=== PATIENT | female | born 1970 | race Caucasian/White ===

== ENCOUNTER 2016-08-20 02:45 | Emergency (ER) | payer BC ==
[~2016-08-20] VITALS: Ht 157.5 cm; Wt 85.0 kg
[~2016-08-20 02:45] MED LIST: CYCL-319 PO; HYDR-906 PO; NAPR-260 PO
[2016-08-20 02:51] VITALS: Ht 157.5 cm; Wt 85.0 kg
--- NOTE | 2016-08-20 05:04 | RADRPT ---
PROCEDURE: CT Brain without contrast. CLINICAL INDICATION: Trauma TECHNIQUE: Axial images from the skull base through the vertex without IV contrast. Multiplanar r eformatted images were made. Images were reviewed on a PACS workstation. The CTDIvol is 44.81 mGy and the DLP is 720.23 mGycm. One or more of the following dose reduction techniques were used: auto mated exposure control, adjustment of the mA and/or kV according to patient size, or use of iterativ e reconstruction technique. COMPARISON: None. FINDINGS: The ventricles and cisterns are normal for age. There is no evidence for territorial infarction or intracranial hemorrhage. No mass or midline shift is seen. No extra-axial fluid collection is seen . The visualized paranasal sinuses and mastoids are clear. IMPRESSION: No definite acute intracranial abnormality. RPTAT: [facility] Physician Kavon Date Time Electronically viewed and signed by Physician Kavon on 08/20/2016 05:04 ALICJA/
--- NOTE | 2016-08-20 05:06 | RADRPT ---
PROCEDURE: CT Cervical Spine. CLINICAL INDICATION: Trauma. Neck pain. TECHNIQUE: Helical CT scanning which forms the basis for coronal and sagittal reformatted images. All CT scans at this facility use dose modulation, iterative reconstruction, and/or weight-based do sing when appropriate to reduce radiation dose to as low as reasonably achievable. The CTDIvol is 2 2.27 mGy and the DLP is 525.91 mGycm. One or more of the following dose reduction techniques were us ed: automated exposure control, adjustment of the mA and/or kV according to patient size, or use of iterative reconstruction technique. COMPARISON: None. FINDINGS: There is slight reversal of cervical lordosis which may be secondary to spasm or positioning. No pr evertebral soft tissue swelling is seen. No fracture or significant listhesis is seen. IMPRESSION: No definite fracture or significant listhesis. Clinical clearance of the cervical spine is still ad vised. RPTAT: [facility] Physician Kavon Date Time Electronically viewed and signed by Physician Kavon on 08/20/2016 05:06 ALICJA/
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
--- NOTE | 2016-08-20 05:24 | RADRPT ---
PROCEDURE: RIGHT ANKLE - 3 VIEWS CLINICAL INDICATION: 46-year-old female with trauma. TECHNIQUE: AP, oblique and lateral views of the right ankle were performed. The images reviewed on a PACS workstation. COMPARISON: Right ankle July 20, 2012. FINDINGS: The bones of the ankle appear intact, with no evidence of fracture, dislocation, or subluxation. The joint spaces are preserved. The mortise appears intact. Bone mineralization is within normal limits . IMPRESSION: Unremarkable right ankle radiographs. .Fred Banks MD, MD Date Time Electronically viewed and signed by .Fred Banks MD, MD on 08/20/2016 05:23 .M/
[2016-08-20] MEDS ORDERED: IBUP-1542 PO (05:45)
[2016-08-20] MEDS ORDERED: IBUPROFEN 200 MG TAB PO ONE (06:00)
[2016-08-20 06:18] VITALS: BP 124/77; PULSE 79; RESP 18; TEMP 98.6
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
== END 2016-08-20 06:18 | disposition home or self-care (01) ==
LOC: E/R 02:45
DX: S83.91XA Sprain of unspecified site of right knee, initial encounter (principal); R40.2252 Coma scale, best verbal response, oriented, at arrival to emergency department; S93.401A Sprain of unspecified ligament of right ankle, initial encounter; S09.8XXA Other specified injuries of head, initial encounter; R40.2142 Coma scale, eyes open, spontaneous, at arrival to emergency department; R40.2362 Coma scale, best motor response, obeys commands, at arrival to emergency department; W18.09XA Striking against other object with subsequent fall, initial encounter; Y92.9 Unspecified place or not applicable
CPT/HCPCS: 36415; 70450; 72125; 72170; 73562; 73610; 84703; 99285; Z7610

== ENCOUNTER 2017-03-24 21:51 | Emergency (ER) | payer BC ==
[~2017-03-24] VITALS: Ht 167.6 cm; Wt 103.0 kg
[~2017-03-24 21:51] MED LIST changes: +IBUP-1542 PO
[2017-03-24 21:54] VITALS: Ht 167.6 cm; Wt 103.0 kg
[2017-03-24] MEDS ORDERED: ONDANSETRON 4 MG INJ IV STA (23:34)
[2017-03-24] MEDS ORDERED: morphine 4 MG/ML VIAL IV STA (23:34)
[2017-03-24] MEDS ORDERED: SOD CHLORIDE 0.9% 1,000 ML IV STA (23:34)
--- NOTE | 2017-03-24 23:44 | ERD ---
ER Documentation Chief Complaint Date/Time DATE: 03/24/17 TIME: 23:40 Chief Complaint c/o abd pain since a.m. after eating breakfast. (+) nausea and diarrhea. HPI 46-year-old female presents to emergency department for complaints of mid abdominal pain that started this morning after eating breakfast. Patient describes the pain as sharp pain, 10/10 scale, not better or worse with anything. Patient did not take any medications to help with symptoms. Patient denies any vomiting but is complaining of nausea. Patient had episodes of diarrhea. Patient is not on any blood in stool or black stool. ROS All systems reviewed and are negative except as per history of present illness. Medications Home Meds Active Scripts Ibuprofen* (Motrin*) 600 Mg Tab, 600 MG PO Q6H Y for PAIN AND OR ELEVATED TEMP, #30 TAB Prov:RAMÍREZ CLAYTON MD 08/20/16 Naproxen* (Naprosyn*) 500 Mg Tablet, 500 MG PO BID Y for PAIN AND/OR INFLAMMATION, #30 TAB Prov:NAKITA MOLINA PA-C 04/20/16 Hydrocodone/Acetaminophen ([place] 5-325 Tablet) 1 Each Tablet, 1 TAB PO Q6H Y for PAIN, #7 TAB Prov:NAKITA MOLINA PA-C 04/20/16 Cyclobenzaprine Hcl* (Cyclobenzaprine Hcl*) 10 Mg Tablet, 10 MG PO TID, #15 TAB Prov:NAKITA MOLINA PA-C 04/20/16 Allergies Allergies: Coded Allergies: No Known Allergy (Unverified , 08/20/16) PMhx/Soc History of Surgery: Yes (cholecystectomy,umbilical hernia repair,tonsillectomy) Anesthesia Reaction: No Hx Neurological Disorder: No Hx Respiratory Disorders: No Hx Cardiac Disorders: No Hx Psychiatric Problems: No Hx Miscellaneous Medical Probl: No Hx Alcohol Use: Yes (occasionally,last used 08/19/16-vodka,beer,wine,Tequila) Hx Substance Use: No Hx Tobacco Use: No FmHx Family History: No coronary disease, No diabetes, No other Physical Exam Vitals Vital Signs Date Time Temp Pulse Resp B/P Pulse Ox O2 Delivery O2 Flow Rate FiO2 03/24/17 21:54 99.0 79 18 187/92 99 Physical Exam GENERAL: The patient is well developed and appropriate for usual state of health, in no apparent distress. CHEST: Clear to auscultation bilaterally. There are no rales, wheezes or rhonchi. HEART: Regular rate and rhythm. No murmurs, clicks, rubs or gallops. No S3 or S4. ABDOMEN: Soft, mid abdominal tenderness noted and nondistended. Good bowel sounds. No rebound or guarding. No gross peritonitis. No gross organomegaly or masses. No Gonzalez sign or McBurney point tenderness. BACK: No midline or flank tenderness. EXTREMITIES: Equal pulses bilaterally. There is no peripheral clubbing, cyanosis or edema. No focal swelling or erythema. Full range of motion. Grossly neurovascularly intact. NEURO: Alert and oriented. Cranial nerves 2-12 intact. Motor strength in all 4 extremities with 5/5 strength. Sensation grossly intact. Normal speech and gait. SKIN: There is no apparent rash or petechia. The skin is warm and dry. HEMATOLOGIC AND LYMPHATIC: There is no evidence of excessive bruising or lymphedema. No gross cervical, axillary, or inguinal lymphadenopathy. Result Diagram: 03/25/17 0020 03/25/17 0020 Results 24 hrs Laboratory Tests Test 03/25/17 00:20 White Blood Count 9.110^3/ul Red Blood Count 4.9410^6/ul Hemoglobin 11.5g/dl Hematocrit 38.2% Mean Corpuscular Volume 77.3fl Mean Corpuscular Hemoglobin 23.3pg Mean Corpuscular Hemoglobin Concent 30.1g/dl Red Cell Distribution Width 17.2% Platelet Count 18084^3/UL Mean Platelet Volume 9.8fl Neutrophils % 77.6% Lymphocytes % 13.9% Monocytes % 6.9% Eosinophils % 0.9% Basophils % 0.4% Nucleated Red Blood Cells % 0.0/100WBC Neutrophils # 7.110^3/ul Lymphocytes # 1.310^3/ul Monocytes # 0.610^3/ul Eosinophils # 0.110^3/ul Basophils # 0.010^3/ul Nucleated Red Blood Cells # 0.010^3/ul Urine Color YELLOW Urine Clarity SLIGHTLY CLOUDY Urine pH 8.0 Urine Specific [place] 1.017 Urine Ketones NEGATIVEmg/dL Urine Nitrite NEGATIVEmg/dL Urine Bilirubin NEGATIVEmg/dL Urine Urobilinogen NEGATIVEmg/dL Urine Leukocyte Esterase NEGATIVELeu/ul Urine Microscopic RBC 1/HPF Urine Microscopic WBC 1/HPF Urine Squamous Epithelial Cells FEW/HPF Urine Bacteria FEW/HPF Urine Hemoglobin NEGATIVEmg/dL Urine Glucose NEGATIVEmg/dL Urine Total Protein 1+mg/dl Sodium Level 139mmol/L Potassium Level 3.7mmol/L Chloride Level 100mmol/L Carbon Dioxide Level 31mmol/L Anion Gap 12 Blood Urea Nitrogen 13mg/dl Creatinine 0.85mg/dl Glucose Level 116mg/dl Calcium Level 10.5mg/dl Total Bilirubin 0.3mg/dl Direct Bilirubin 0.00mg/dl Indirect Bilirubin 0.3mg/dl Aspartate Amino Transf (AST/SGOT) 21IU/L Alanine Aminotransferase (ALT/SGPT) 33IU/L Alkaline Phosphatase 113IU/L Total Protein 8.2g/dl Albumin 4.3g/dl Globulin 3.90g/dl Albumin/Globulin Ratio 1.10 Lipase 58U/L Current Medications Medications (Trade) Dose Ordered Sig/Nini Route PRN Reason Start Time Stop Time Status Last Admin Dose Admin Sodium Chloride (NS) 1,000 ml @ 1,000 mls/hr Q1H STAT IV 03/24/17 23:34 03/25/17 00:33 DC 03/25/17 00:11 Morphine Sulfate (morphine) 4 mg ONCE STAT IV 03/24/17 23:34 03/24/17 23:37 DC 03/25/17 00:10 Ondansetron HCl 4 mg 4 mg ONCE STAT IV 03/24/17 23:34 03/24/17 23:37 DC 03/25/17 00:10 Sodium Chloride (NS) 100 ml @ ud STK-MED ONCE .ROUTE 03/25/17 01:34 03/25/17 01:35 DC 03/25/17 01:49 Iohexol (Omnipaque 300mg/ ml) 150 ml STK-MED ONCE .ROUTE 03/25/17 01:34 03/25/17 01:35 DC 03/25/17 01:48 Patient was given medication for pain here in emergency department, after treatment, patient verbalized feeling much better. Patient's pain is improved. Patient was given Zofran here in the emergency department. After treatment, patient was able to tolerate po fluids here in the emergency department without any vomiting. There is no signs and symptoms of dehydration. Normal saline IV bolus was given here in emergency department for rehydration, patient tolerated IV fluids. PROCEDURE: CT ABDOMEN/PELVIS WITH CONTRAST CLINICAL INDICATION: 46-year-old female with abdominal pain. TECHNIQUE: The study was performed utilizing a GE MicroEdgepeed VCT 64-slice CT scanner. Direct axial sections were obtained through the abdomen and pelvis with the use of 100 cc of Omnipaque-300 nonionic intravenous contrast material. Sagittal and coronal reformations were obtained. One or more of the following dose reduction techniques were utilized: automated exposure control, adjustment of the mA and/or kV according to patient's size or use of iterative reconstruction technique. The images were reviewed on a PACS workstation. CTD/ vol = 23.4 mGy; Total Exam DLP = 1450.9 mGy-cm. COMPARISON: None. FINDINGS: There is trace right basilar subsegmental atelectasis. There is no evidence for significant pleural effusion. The liver has a normal size and contour without focal areas of abnormal density or contrast enhancement. There is mild intrahepatic biliary ductal dilatation. Surgical clips are present within the gallbladder fossa from prior cholecystectomy. The distal common bile duct measures approximately 6.7 mm. The pancreas is without areas of abnormal attenuation or contrast enhancement. This spleen is identified and has a normal size without abnormal density or contrast enhancement. The adrenal glands are unremarkable. The kidneys are functional bilaterally without abnormal density. No hydroureteronephrosis nor nephroureterolithiasis is evident. The urinary bladder contains urine. There is mild fluid identified within the small bowel and colon without obstruction. This may represent an enteritis. There are a few small diverticula within the sigmoid colon without surrounding inflammatory changes. The appendix is diminutive and is without edema or surrounding inflammatory reaction. The uterus is anteflexed. There is a partially collapsed right ovarian cyst measuring approximately 13 x 14 x 14 mm. There is trace right adnexal free fluid. There is a ovoid left ovarian cyst measuring approximately 2.5 x 3.3 x 1.9 cm. The aortoiliac vessels are without aneurysmal dilatation. Mild degenerative changes are visualized and L5-S1 with a vacuum disc present. IMPRESSION: 1. Status post cholecystectomy with mild intrahepatic and common bile ductal dilatation. 2. Mild fluid identified within the small bowel and colon without obstruction. This may representing enteritis. Clinical correlation is necessary. 3. Minimal sigmoid diverticulosis. 4. No CT evidence for appendicitis. 5. Partially collapsed right ovarian cyst with trace right adnexal free fluid. 6. Left ovarian cyst. 7. Mild degenerative changes L5-S1. .Fred Banks MD, Date Time Electronically viewed and signed by .Fred Banks MD, MD on 03/25/2017 02:15 .M/ CC: MARY ANNE BENAVIDEZ [employer] ATTORNEY Procedures/MDM Medical Decision Making: Patient symptoms consistent with viral gastroenteritis. No symptoms of dehydration. No active vomiting at this time. There is low suspicion for abdominal emergencies at this time. Patients abdominal exam is normal at this time. Patients radiology exam does not show any abdominal emergencies at this time. There is low suspicion for appendicitis , cholecystitis, abdominal aortic aneurysms or peritonitis at this time. There is low suspicion for sepsis. Patient appears well and is hemodynamically stable. Disposition: Home. Condition: Stable Prescription Bentyl Zofran, ibuprofen, [place] Instructions: Patient is advised to take medications as prescribed. Patient is advised to rest, increase fluid intake and do brat diet for next 1-2 days and progress as tolerated. Patient is advised that if symptoms are worse, severe abdominal pain, uncontrolled vomiting, high fever, severe flank pain, worst signs and symptoms, to return to the emergency department immediately. Otherwise, patient can follow up with primary care doctor in 5-7 days. Disclaimer: Inadvertent spelling and grammatical errors are likely due to EHR/ dictation software use and do not reflect on the overall quality of patient care. Also, please note that the electronic time recorded on this note does not necessarily reflect the actual time of the patient encounter. Departure Diagnosis: Primary Impression: Viral gastroenteritis Condition: Stable Patient Instructions: Gastroenteritis, Viral (6Y-Adult) Additional Instructions: Patient is advised to take medications as prescribed. Patient is advised to rest , increase fluid intake and do brat diet for next 1-2 days and progress as tolerated. Patient is advised that if symptoms are worse, severe abdominal pain , uncontrolled vomiting, high fever, severe flank pain, worst signs and symptoms , to return to the emergency department immediately. Otherwise, patient can follow up with primary care doctor in 5-7 days. MARY ANNE BENAVIDEZ. LA NENA Mar 24, 2017 23:44
[2017-03-25 00:34] LABS: BASOPHILS % 0.4 % (0.0-2.0); EOSINOPHILS # 0.1 10^3/ul (0.0-0.5); EOSINOPHILS % 0.9 % (0.0-7.0); HEMATOCRIT 38.2 % (37.0-47.0); HEMOGLOBIN 11.5 g/dl (12.0-16.0); LYMPHOCYTES # 1.3 10^3/ul (0.8-2.9); LYMPHOCYTES % 13.9 % (15.0-51.0); MEAN CORPUSCULAR HEMOGLOBIN 23.3 pg (29.0-33.0); MEAN CORPUSCULAR HGB CONC 30.1 g/dl (32.0-37.0); MEAN CORPUSCULAR VOLUME 77.3 fl (82.0-101.0); MEAN PLATELET VOLUME 9.8 fl (7.4-10.4); MONOCYTE # 0.6 10^3/ul (0.3-0.9); MONOCYTES % 6.9 % (0.0-11.0); NEUTROPHIL # 7.1 10^3/ul (1.6-7.5); NEUTROPHILS % 77.6 % (39.0-77.0); PLATELET COUNT 398 10^3/UL (140-415); RED BLOOD COUNT 4.94 10^6/ul (4.20-5.40); RED CELL DISTRIBUTION WIDTH 17.2 % (11.5-14.5); WHITE BLOOD COUNT 9.1 10^3/ul (4.8-10.8)
[2017-03-25 00:37] LABS: ADD UMIC YES; UR ASCORBIC ACID NEGATIVE (NEGATIVE); UR BACTERIA FEW /HPF (NONE SEEN); UR BILIRUBIN (Dip) NEGATIVE (NEGATIVE); UR BLOOD (Dip) NEGATIVE (NEGATIVE); UR CLARITY SLIGHTLY CLOUDY (CLEAR); UR COLOR YELLOW (YELLOW); UR GLUCOSE (Dip) NEGATIVE (NEGATIVE); UR KETONES (Dip) NEGATIVE (NEGATIVE); UR LEUKOCYTE ESTERASE (Dip) NEGATIVE Leu/ul (NEGATIVE); UR NITRITE (Dip) NEGATIVE (NEGATIVE); UR RBC 1 /HPF (0-5); UR SPECIFIC GRAVITY (Dip) 1.017 (1.003-1.030); UR SQUAMOUS EPITHELIAL CELL FEW /HPF (FEW); UR TOTAL PROTEIN (Dip) 1+ mg/dl (NEGATIVE); UR UROBILINOGEN (Dip) NEGATIVE (NEGATIVE)
[2017-03-25 01:14] LABS: ALBUMIN 4.3 g/dl (3.3-4.9); ALBUMIN/GLOBULIN RATIO 1.1; BILIRUBIN,INDIRECT 0.3 mg/dl (0-1.1); BILIRUBIN,TOTAL 0.3 mg/dl (0.2-1.3); CALCIUM 10.5 mg/dl (8.4-10.2); CREATININE 0.85 mg/dl (0.44-1.00); POTASSIUM 3.7 mmol/L (3.5-5.1); TOTAL PROTEIN 8.2 g/dl (6.1-8.1)
[2017-03-25] MEDS ORDERED: IOHEXOL 300MG/ML 150 ML BTL ONE (01:34)
[2017-03-25] MEDS ORDERED: SOD CHLORIDE 0.9% 100 ML ONE (01:34)
--- NOTE | 2017-03-25 02:15 | RADRPT ---
PROCEDURE: CT ABDOMEN/PELVIS WITH CONTRAST CLINICAL INDICATION: 46-year-old female with abdominal pain. TECHNIQUE: The study was performed utilizing a GE [employer] VCT 64-slice CT scanner. Direct axia l sections were obtained through the abdomen and pelvis with the use of 100 cc of Omnipaque-300 juma onic intravenous contrast material. Sagittal and coronal reformations were obtained. One or more of the following dose reduction techniques were utilized: automated exposure control, adjustment of the mA and/or kV according to patient's size or use of iterative reconstruction technique. The images were reviewed on a PACS workstation. CTD/vol = 23.4 mGy; Total Exam DLP = 1450.9 mGy-cm. COMPARISON: None. FINDINGS: There is trace right basilar subsegmental atelectasis. There is no evidence for significant pleural effusion. The liver has a normal size and contour without focal areas of abnormal density or contra st enhancement. There is mild intrahepatic biliary ductal dilatation. Surgical clips are present wit hin the gallbladder fossa from prior cholecystectomy. The distal common bile duct measures approxima tely 6.7 mm. The pancreas is without areas of abnormal attenuation or contrast enhancement. This sp allison is identified and has a normal size without abnormal density or contrast enhancement. The adren al glands are unremarkable. The kidneys are functional bilaterally without abnormal density. No hydr oureteronephrosis nor nephroureterolithiasis is evident. The urinary bladder contains urine. There i s mild fluid identified within the small bowel and colon without obstruction. This may represent an enteritis. There are a few small diverticula within the sigmoid colon without surrounding inflammatory changes. The appendix is diminutive and is without edema or surrounding inflammatory re action. The uterus is anteflexed. There is a partially collapsed right ovarian cyst measuring approx imately 13 x 14 x 14 mm. There is trace right adnexal free fluid. There is a ovoid left ovarian cys t measuring approximately 2.5 x 3.3 x 1.9 cm. The aortoiliac vessels are without aneurysmal dilatati on. Mild degenerative changes are visualized and L5-S1 with a vacuum disc present. IMPRESSION: 1. Status post cholecystectomy with mild intrahepatic and common bile ductal dilatation. 2. Mild fluid identified within the small bowel and colon without obstruction. This may representin g enteritis. Clinical correlation is necessary. 3. Minimal sigmoid diverticulosis. 4. No CT evidence for appendicitis. 5. Partially collapsed right ovarian cyst with trace right adnexal free fluid. 6. Left ovarian cyst. 7. Mild degenerative changes L5-S1. .Fred Banks MD, Date Time Electronically viewed and signed by .Fred Banks MD, on 03/25/2017 02:15 .M/
[2017-03-25] MEDS ORDERED: HYDR-906 PO (02:35)
[2017-03-25] MEDS ORDERED: DICY10CA60 PO (02:35)
[2017-03-25] MEDS ORDERED: IBUP-1542 PO (02:35)
[2017-03-25] MEDS ORDERED: ONDA4TAB14 PO (02:35)
[2017-03-25 03:00] VITALS: BP 136/75; PULSE 70; RESP 18; TEMP 97.7
[2017-03-25] MEDS ORDERED: DICYCLOMINE 10 MG CAP PO ONE (03:00)
== END 2017-03-25 03:01 | disposition home or self-care (01) ==
LOC: FTE 21:51
DX: A08.4 Viral intestinal infection, unspecified (principal)
CPT/HCPCS: 36415; 74177; 80053; 81001; 83690; 85025; 96374; 96375; 99285; J2270; J2405; J7030; Q9967; Z7610

== ENCOUNTER 2018-01-31 21:55 | Emergency (ER) | END 2018-02-01 02:20 | disposition home or self-care (01) ==

== ENCOUNTER 2018-11-20 06:28 | Inpatient (IN) | payer BC ==
--- NOTE | 2018-11-19 16:23 | PREOPHP ---
DATE OF ADMISSION: 11/20/2018 The patient is coming on 11/20/2018 for surgery. HISTORY OF PRESENT ILLNESS: This is a 48-year-old female 6, para 5 patient with a history of abnormal Pap smears, menopausal syndrome, body aches, depression, perspiration, hot flashes, history of fibroids and anemia and bleeding. This patient also has been losing urine with Valsalva maneuver s and she wears a pad on a daily basis due to urinary accidents that happens when she lifts and cough and laugh and also urgency and urination sometimes during sex. The patient also complains of pelvic pressure, pelvic pain all day long, dyspareunia, dysmenorrhea, constipation. The patient had a lapa roscopic cholecystectomy in the past and an umbilical hernia. She was diagnosed with a pelvic prolap se, complete uterus vaginal prolapse with large cystourethrocele and rectocele for which she is under going vaginal total hysterectomy and repair. The patient had been advised for a sling procedure and a graft and she has been given all the information about using a graft and sling versus not using it and the alternatives and options, benefits, possible risks and complications. She had been given [facility] information and all her questions were answered. The patient decided to go ahead with this proc edure. PAST MEDICAL HISTORY: As I said is a hernia and laparoscopic cholecystectomy. ALLERGIES: SHE HAS NO ALLERGIES. MEDICATIONS: She has been on lorazepam 1 mg. FAMILY HISTORY: Unremarkable/noncontributory. SOCIAL HISTORY: She does not drink or smoke. REVIEW OF SYSTEMS: She has no history of endocrine disease, cardiovascular, lung disease, orthopedic , neurological. PHYSICAL EXAMINATION: VITAL SIGNS: Stable. Her blood pressure is 120/76, pulse is 80, respirations 16. She weighs 228 po unds. She is 5 feet and 5 inches. HEAD AND NECK: Normal. BREASTS: Soft, nontender. No masses. CHEST: Clear. HEART: Normal sinus rhythm. LUNGS: Clear. BACK: Normal. ABDOMEN: Soft, nontender, no masses. GENITALIA: With large cystourethrocele grade III and rectocele grade II to III. Cervix: Large uter us with fibroid consistency, mobile and painful and adnexa are negative. DIAGNOSES: 1. Uterovaginal prolapse complete. 2. Cystourethrocele grade III. 3. Mixed urinary stress incontinence. 4. Fibroid uterus. 5. Intractable pelvic pain. 6. Menometrorrhagia. 7. Rectocele. 8. Constipation. 9. Anemia. She is undergoing a vaginal total hysterectomy, anterior and posterior colporrhaphy, suburethral slin g and ACell graft. Again, she has been advised of the possible risks and possible complications of t he procedure with her alternatives and options and benefits, possible complications of the sling and no sling and the rest of the operation. She has been on advised that she could use local pessary for which it could be the alternative of the surgery and she would like to have the surgery proceeded an d go ahead. Dictated By: SHARRON SHEPHERD/JERRI Conf#: [id number] DID#: [id number]
[~2018-11-20] VITALS: Ht 162.6 cm; Wt 108.1 kg
[2018-11-20] VITALS (23 sets, daily range): BP systolic 98–126; BP diastolic 56–79; PULSE 18–94; RESP 14–31; Ht 162.6 cm; Wt 108.1 kg
[~2018-11-20 06:28] MED LIST changes: +BISM-34 PO; +CEFAZOLIN 2 GM/50 ML (PMX) 50 ML IVPB ONE; -CYCL-319 PO; +CYCL10TA7 PO; +DICY10CA40 PO; +HYDR-4011 PO; -HYDR-906 PO; -NAPR-260 PO; +NAPR-985 PO; +ONDA4TAB14 PO; +RANI150T35 PO
[2018-11-20] MEDS ORDERED: BUPIVACAINE 0.25%/EPI (SDV) 30 ML INJ INJ ONE (07:00)
[2018-11-20] MEDS ORDERED: BUPIVACAINE 0.25%/EPI (SDV) 30 ML INJ ONE ×3 (07:22→09:59)
[2018-11-20] MEDS ORDERED: NEOSTIGMINE 3 MG/3 ML SYRINGE ONE (07:38)
[2018-11-20] MEDS ORDERED: FENTAnyl 50 MCG/ML VIAL ONE (07:38)
[2018-11-20] MEDS ORDERED: CEFAZOLIN 1 GM INJ ONE (07:38)
[2018-11-20] MEDS ORDERED: MIDAZOLAM 1 MG/ML 2 ML INJ ONE (07:38)
[2018-11-20] MEDS ORDERED: ROCURONIUM 50 MG INJ ONE (07:38)
[2018-11-20] MEDS ORDERED: PROPOFOL 20 ML ONE (07:38)
[2018-11-20] MEDS ORDERED: GLYCOPYRROLATE 0.4 MG INJ ONE (07:38)
--- NOTE | 2018-11-20 07:38 | PREAC ---
Date/Time of Note Date/Time of Note DATE: 11/20/18 TIME: 07:37 Anesthesia Eval and Record Evaluation Time Pre-Procedure Interview DATE: 11/20/18 TIME: 07:37 Age 48 Sex female NPO: 8 hrs Preoperative diagnosis uterovaginal prolapse Planned procedure vaginal hysterectomy, AP repair Past Medical History Past Medical History: Includes Cardio: Dyslipidemia GI: Morbid obesity Surgery & Anesthesia Issues No known issue Meds Anticoagulation: No Beta Ester within 24 hr: No Reason Beta Ester not given: Pt. not on B-Esetr Discontinued Scripts Ranitidine Hcl* (Zantac*) 150 Mg Tablet, 150 MG PO BID PRN for EPIGASTRIC PAIN, #30 TAB Prov:BRANDON FRANZ PA-C 02/01/18 Bismuth Subsalicylate* (Bismuth Subsalicylate*) 262 Mg/15 Ml Oral.susp, 15 ML PO Q6 PRN for diarrh, #1 BOTTLE Prov:BRANDON FRANZ PA-C 02/01/18 Ondansetron (Ondansetron Odt) 4 Mg Tab.rapdis, 4 MG PO Q8 PRN for NAUSEA AND/OR VOMITING, #30 TAB Prov:MARY ANNE BENAVIDEZ NP 03/25/17 Dicyclomine HCl (Dicyclomine HCl) 10 Mg Capsule, 10 MG PO QID, #20 CAP Prov:MARY ANNE BENAVIDEZ NP 03/25/17 Hydrocodone/Acetaminophen ([place] 5-325 Tablet) 1 Each Tablet, 1 TAB PO Q6H PRN for SEVERE PAIN LEVEL 7-10, #20 TAB Prov:MARY ANNE BENAVIDEZ NP 03/25/17 Ibuprofen* (Motrin*) 600 Mg Tab, 600 MG PO Q6H PRN for PAIN AND OR ELEVATED TEMP, #30 TAB Prov:MARY ANNE BENAVIDEZ NP 03/25/17 Ibuprofen* (Motrin*) 600 Mg Tab, 600 MG PO Q6H PRN for PAIN AND OR ELEVATED TEMP, #30 TAB Prov:RAMÍREZ CLAYTON MD 08/20/16 Naproxen* (Naprosyn*) 500 Mg Tablet, 500 MG PO BID PRN for PAIN AND/OR INFLAMMATION, #30 TAB Prov:NAKITA MOLINA PA-C 04/20/16 Hydrocodone/Acetaminophen ([place] 5-325 Tablet) 1 Each Tablet, 1 TAB PO Q6H PRN for PAIN, #7 TAB Prov:NAKITA MOLINA PA-C 04/20/16 Cyclobenzaprine Hcl* (Cyclobenzaprine Hcl*) 10 Mg Tablet, 10 MG PO TID, #15 TAB Prov:NAKITA MOLINA PA-C 04/20/16 Meds reviewed: Yes Allergies Coded Allergies: No Known Allergy (Unverified , 11/20/18) Allergies Reviewed: Yes Labs/Studies Labs Reviewed: Reviewed by anesthesiologist Blood Bank Test 11/20/18 06:37 Blood Product Summary Counts test: Negative Pre-procedure Exam Last vitals Vital Signs Date Temp Pulse Resp B/P (MAP) Pulse Ox O2 O2 Flow FiO2 Time Delivery Rate 11/20/18 98.5 18 18 114/65 96 Room Air 07:13 (81) Airway: Adequate mouth opening, Adequate thyromental dist Mallampati: Mallampati II Teeth: Normal Lung: Normal Heart: Normal ASA Physical Status ASA physical status: 3 Emergency: None Planned Anesthetic General/MAC: ETT Neuraxial: Spinal Planned Pain Management Parenteral pain med Pre-operative Attestations Prior to commencing anesthesia and surgery, the patient was re-evaluated, there was verification of: *The patient's identity *The results of appropriate recent lab work and preoperative vital signs *The above evaluation not changing prior to induction *Anesthetic plan, risk benefits, alternative and complications discussed with patient/family; questions answered; patient/family understands, accepts and wishes to proceed. Sascha Leger M.D. November 20, 2018 07:38
[2018-11-20] MEDS ORDERED: ONDANSETRON 4 MG INJ ONE (07:39)
[2018-11-20] MEDS ORDERED: morphine SULFATE/PF (10 MG/10 ML) INJ ONE (07:39)
[2018-11-20] MEDS ORDERED: DEXAMETHASONE 4 MG/ML 5 ML INJ ONE (07:39)
[2018-11-20] MEDS ORDERED: SUGAMMADEX SODIUM 200 MG/2 ML VIAL IV ONE (10:10)
--- NOTE | 2018-11-20 10:52 | RADRPT ---
Vent Rate: 73 bpm RR Interval: 820 msec KS Interval: 133 msec QRS Duration: 96 msec QT Interval: 436 msec QTC Interval: 481 msec P-R-T [place]: 21 - 16 - 39 degrees Sinus rhythm...normal P axis, V-rate 50- 99 Electronically Signed By: Maynor Miller
[2018-11-20] MEDS ORDERED: METOCLOPRAMIDE 10 MG INJ ONE (10:54)
[2018-11-20] MEDS ORDERED: hydrALAzine 20 MG INJ IV PRN (11:00)
[2018-11-20] MEDS ORDERED: LABETALOL HCL 20MG INJ IV PRN (11:00)
[2018-11-20] MEDS ORDERED: ALBUTEROL 0.083% (NEB) 2.5 MG/3 ML AMP HHN PRN (11:00)
[2018-11-20] MEDS ORDERED: MEPERIDINE 25 MG INJ IV PRN (11:00)
[2018-11-20] MEDS ORDERED: NALOXONE (0.4 MG/ML) INJ IV PRN (11:00)
[2018-11-20] MEDS ORDERED: HYDROmorphONE 1 MG/5 ML IV SYRINGE IV PRN ×3 (11:00)
[2018-11-20] MEDS ORDERED: OXYCODONE/ACETAMINOPHEN (5/325) TAB PO PRN ×2 (11:00)
[2018-11-20] MEDS ORDERED: NALBUPHINE HCL (10 MG/1 ML) INJ IV PRN (11:00)
[2018-11-20] MEDS ORDERED: HYDROmorphONE 0.5 MG/0.5 ML SYG IV PRN ×2 (11:00)
[2018-11-20] MEDS ORDERED: IPRATROPIUM (NEB) 0.5 MG/2.5 ML AMP HHN PRN (11:00)
[2018-11-20] MEDS ORDERED: EPHEDrine 25 MG/5 ML SYG IV PRN (11:00)
[2018-11-20] MEDS ORDERED: ONDANSETRON 4 MG INJ IV PRN ×2 (11:00)
[2018-11-20] MEDS ORDERED: FENTAnyl 50 MCG/ML VIAL IV PRN ×3 (11:00)
[2018-11-20] MEDS ORDERED: KETOROLAC 30 MG INJ IV PRN (11:00)
[2018-11-20] MEDS ORDERED: MIDAZOLAM 1 MG/ML 2 ML INJ IV PRN (11:00)
[2018-11-20] MEDS ORDERED: DIPHENHYDRAMINE 50 MG INJ IV PRN ×2 (11:00)
[2018-11-20] MEDS ORDERED: ZOLPIDEM 5 MG TAB PO PRN ×2 (11:00→11:30)
[2018-11-20] MEDS ORDERED: TRIMETHOBENZAMIDE 100 MG/ML VIAL IM PRN ×2 (11:00)
--- NOTE | 2018-11-20 11:05 | PAC ---
Date/Time of Note Date/Time of Note DATE: 11/20/18 TIME: 11:05 Post-Anesthesia Notes Post-Anesthesia Note Last documented vital signs Vital Signs Date Temp Pulse Resp B/P (MAP) Pulse Ox O2 O2 Flow FiO2 Time Delivery Rate 11/20/18 99.4 11:03 11/20/18 18 18 114/65 96 Room Air 07:13 (81) Activity: WNL Respiratory function: WNL Cardiovascular function: WNL Mental status: Baseline Pain reasonably controlled: Yes Hydration appropriate: Yes Nausea/Vomiting absent: Yes Sascha Leger M.D. November 20, 2018 11:05
--- NOTE | 2018-11-20 11:15 | SIPON ---
Date/Time of Note Date/Time of Note DATE: 11/20/18 TIME: 11:12 Operative Report Preoperative Diagnosis Morbid obesity cystourethrocele grade 3, mixed incontinence Fibroid uterus. Intractable pelvic pain and menometrorrhagia. Anemia and constipation Morbid obesity Postoperative Diagnosis Name Operation/Procedure Performed Vaginal total hysterectomy anterior repair and sling and graft and cystoscopy Surgeon see signature line recruitment assistant Dr Tate Anesthesia: general Estimated blood loss: 250 - 300 ml's Transfusion Required none Specimen Uterus Grafts/Implants none Complications none SHARRON ROBERTSON MD November 20, 2018 11:15
[2018-11-20] MEDS ORDERED: HYDROCODONE/APAP (5/325) TAB PO PRN ×2 (11:30)
[2018-11-20] MEDS ORDERED: ONDANSETRON INJ 6 MG in DEXTROSE 5% 50 ML IVPB PRN (11:30)
[2018-11-20] MEDS ORDERED: DIPHENHYDRAMINE 50 MG CAP PO PRN (11:30)
[2018-11-20] MEDS: KETOROLAC 30 MG INJ IV SCH ×3 (11:41→23:53)
--- NOTE | 2018-11-20 12:42 | OPR ---
DATE OF OPERATION: 11/20/2018 PREOPERATIVE DIAGNOSES: 1. Intractable pelvic pain and menometrorrhagia with anemia. 2. Fibroid uterus. 3. Mixed incontinence, constipation, morbid obesity, fibroid uterus. POSTOPERATIVE DIAGNOSES: 1. Intractable pelvic pain and menometrorrhagia with anemia. 2. Fibroid uterus. 3. Mixed incontinence, constipation, morbid obesity, fibroid uterus. PROCEDURE: Vaginal total hysterectomy, anterior repair, Obtryx sling and ACell graft and cystoscopy. SURGEON: Sharron Robertson M.D. DECONTAMINATION TECHNICIAN: Dr. Tate. ANESTHESIOLOGIST: Dr. Leger. ESTIMATED BLOOD LOSS: About 300 mL. COMPLICATIONS: None. DESCRIPTION OF PROCEDURE: The patient was given general anesthesia, placed in the lithotomy position . The perineal and vaginal areas were prepped and draped and confirmatory examination under anesthes ia revealed that there was a marked cystourethrocele grade III and a grade II rectocele. The vaginal speculum was applied and the large cervix was grabbed with 2 [place] clamps and injection of Xylocaine and epinephrine was given around the cervicovaginal junction. The vaginal length was long and also the uterus was not mesh prolapse due to her age. The patient also had a fibroid uterus that was abou t 12 cm in length. The procedure was to be done due to her insidious pelvic pain and menometrorrhagi a and fibroid uterus with anemia. The anterior cul-de-sac was found. Then the posterior cul-de-sac was found. The cardinal ligaments and uterosacral ligaments were clamped, cut and tied with the Liga Sure instrument and there was a little bit of a struggle to bring the uterus down due to the fibroids and we found both are to use in the uterine and arteries that were treated with the LigaSure and cut . The uterus was further pushed down being large for the environment of the vaginal cuff. The uteru s finally was inverted and after the ovarian ligament and tubes were clamped with the LigaSure and bu rned on the left side, the right side had a slightly more tissue and the uterus was inverted and howie pati, the one side on the right side. The ovarian ligament and tube were sutured with #1 Vicryl. The vaginal cuff was bleeding slightly for which we grabbed the vaginal cuff area and we put interrupted sutures posteriorly until the bleeding subsided. There was no active bleeding inside. There was fontanez ch a long length to find the peritoneum. We left the peritoneum open due to the distance to our surg ical hands. We were just happy to have a good hemostasis and we closed the vagina vertically with in terrupted sutures with #1 Vicryl. Hemostasis was good. At this time, we did not even feel the ovari es or seen the tubes due to the distance to the exterior. The uterus was long with fibroids. The an terior repair was started by making a vertical incision after a Slaughter catheter was placed and the uri ne was draining clear urine. The 2 cm below the ureteral meatus, an incision was made vertically and injection of Xylocaine and epinephrine was given and the separation of the bladder from the anterior vaginal mucosa was done. The dissection was done digitally and with Metzenbaum and the dissection s eparated the bladder from the anterior vaginal mucosa all the way also laterally to the obturator int ernal muscle. The Obtryx sling needle was passed through the obturator area 2 cm below the abductor longus tendon parallel to the uterus. The Obtryx needle was placed in and retrieved vaginally. The sling was attached to it, and the needle was retrieved back and the sleeves of the sling were passed through the obturator canal. This adjustment of the sling was done after the other side was done yareli cing a piece of ACell on the bladder mid urethral area for protection of protrusion. The sling was a djusted and the arms were cut at the level of the skin and the area was closed with Dermabond. The v agina at this time was bleeding from venous bleeding in spite of the epinephrine and we put two Surgi cels in both corners and also we put Surgiflo in both corners. The vagina was closed vertically with 2-0 Vicryl sutures and at this time we evaluated the rectocele, which was mild to second degree, and since she was bleeding around 300 mL of blood so far, we decided not to do it and just put a packing in the vagina, a Xeroform pack and end the procedure. The cystoscopy was done successfully, with no damage to the bladder and both ureters were draining well. The patient tolerated the procedure well and left the OR awake and stable. Sponge counts and instrument counts were correct. Intravenous an tibiotics were given for prophylaxis. Blood loss was approximately 300 mL and the urine was clear. Dictated By: SHARRON ROBERTSON MD [facility] Conf#: [id number] DID#: [id number] CC: SHARRON ROBERTSON MD;*EndCC*
[2018-11-20] MEDS: METOCLOPRAMIDE 10 MG TAB PO SCH ×3 (13:52→23:53)
[2018-11-20] MEDS: LACTATED RINGER'S 1,000 ML IV SCH ×2 (13:53→21:57)
[2018-11-20] MEDS: CEFAZOLIN 1 GM/50 ML (PMX) 50 ML IVPB SCH ×2 (14:16→21:56)
[2018-11-20] MEDS: ENOXAPARIN 30 MG/0.3 ML SYG SC SCH (21:58)
[2018-11-21] MEDS: LACTATED RINGER'S 1,000 ML IV SCH (03:03)
[2018-11-21 04:00] VITALS: BP 110/55; PULSE 61; RESP 18
[2018-11-21] MEDS: KETOROLAC 30 MG INJ IV SCH ×4 (05:43→23:46)
[2018-11-21] MEDS: CEFAZOLIN 1 GM/50 ML (PMX) 50 ML IVPB SCH (05:44)
[2018-11-21] MEDS: METOCLOPRAMIDE 10 MG TAB PO SCH ×4 (05:44→23:47)
[2018-11-21 07:55] VITALS: BP 105/58; PULSE 57; RESP 18
[2018-11-21] MEDS: ENOXAPARIN 30 MG/0.3 ML SYG SC SCH ×2 (08:19→20:14)
--- NOTE | 2018-11-21 10:09 | PN ---
Date/Time of Note Date/Time of Note DATE: 11/21/18 TIME: 10:07 Assessment/Plan Lines/Catheters IV Catheter Type (from Nrsg): Peripheral IV Slaughter in Place (from Nrsg): Yes Subjective 24 Hr Interval Summary Day 1 post vaginal hysterectomy and sling Afebrile, normal vital signs. Not up yet. Patient explained about her surgical findings Feels good,very sleepy. Vaginal packing removed dry. We will start bladder training. Constitutional: improved Feeding: advancing diet Pain Control: mild Detailed Summary Eyes: no complaints ENT: no complaints Respiratory: no complaints Cardiovascular: no complaints Gastrointestinal: no complaints Genitourinary: no complaints Musculoskeletal: no complaints Skin: no complaints Neurologic: no complaints Endocrine: no complaints Lymphatic: no complaints Psychological: no complaints, nl mood/affect Immunologic: no complaints Exam/Review of Systems Vital Signs Vitals Vital Signs Date Temp Pulse Resp B/P (MAP) Pulse Ox O2 O2 Flow FiO2 Time Delivery Rate 11/21/18 98.2 57 18 105/58 97 Nasal 2.0 07:55 (74) Cannula Intake and Output 11/20/18 11/20/18 11/21/18 1515:00 23:00 07:00 IntakeIntake Total 50 ml 1250 ml 1650 ml OutputOutput Total 1050 ml 2000 ml BalanceBalance -1000 ml 1250 ml -350 ml Exam Constitutional: alert, oriented, well developed Psych: no complaints, nl mood/affect Head: normocephalic, atraumatic Eyes: nl conjunctiva, EOMI, nl lids, nl sclera ENMT: nl external ears & nose, nl lips & teeth, nl nasal mucosa & septum, mucosa pink and moist Neck: supple, non-tender Respiratory: clear to auscultation, normal air movement Cardiovascular: regular rate and rhythm, nl pulses Gastrointestinal: soft, nl liver, spleen, non-tender Musculoskeletal: nl extremities to inspection, nl gait and stance Extremities: normal pulses Neurological: MANAGER CHILD II-XII intact, nl mental status, nl speech, nl strength Skin: nl turgor, rash or lesions Lymph: nl lymph nodes Results Result Diagram: 11/21/18 0457 11/21/18 0457 SHARRON ROBERTSON MD November 21, 2018 10:09
[2018-11-21 16:27] VITALS: BP 110/60; PULSE 60; RESP 18
[2018-11-21 19:51] VITALS: BP 122/68; PULSE 71; RESP 18
[2018-11-22 02:01] VITALS: BP 109/56; PULSE 57; RESP 18
[2018-11-22] MEDS: KETOROLAC 30 MG INJ IV SCH ×2 (05:24→11:38)
[2018-11-22] MEDS: METOCLOPRAMIDE 10 MG TAB PO SCH ×2 (05:25→11:38)
[2018-11-22 08:30] VITALS: BP 117/65; PULSE 68; RESP 18
[2018-11-22] MEDS: ENOXAPARIN 30 MG/0.3 ML SYG SC SCH (08:36)
--- NOTE | 2018-11-22 11:46 | PD.PPDC ---
TENNIS BALL COVERER HAND Discharge Instruction Condition [id number] Patient Condition: [id number] Good Diet [id number] Diet: [id number] Resume Regular Diet Activity/Restrictions [id number] Activity: Aejcp3d Normal Activity May Shower [id number] Restrictions: Awawe2f No Exercising No Lifting No Driving No Sexual Activity Nothing in the Vagina No Kell No Tampons, douche Wound/Drain Care Instructions [id number] Wound/Drain Care Instructions: Rwhge9m Wash with soap and water Follow-up Follow-up with Physician: 2, Week/Weeks Return to clinic for [id number] CLOUD DEVELOPER Instructions: Mvgyq3m Fever greater than 101 Chills Worsening abdominal pain Excessive Vaginal Bleeding More than 2 pads per hour Unable to tolerate diet SHARRON ROBERTSON MD November 22, 2018 11:46
--- NOTE | 2018-11-22 11:52 | DS ---
Date/Time of Note Date/Time of Note DATE: 11/22/18 TIME: 11:47 Discharge Summary Admission/Discharge Info Admit Date/Time November 20, 2018 at 11:02 Discharge Date/Time 11/22/2018 Discharge Diagnosis Extensive uterine adenomyosis Fibroid uterus Pelvic pain Cystourethrocele grade 3 with mixed incontinence Patient Condition: Good Procedures Vaginal total hysterectomy anterior repair with a sling and graft Hx of Present Illness 48 years old female multigravida. patient has been referred to me for pelvic pain, pelvic prolapse, and urinary incontinence with chronic intractable bleedin g. Fibroid uterus was diagnosed with pelvic prolapse. Patient was offered a vaginal hysterectomy and anterior repair with a sling with a possibility of a rectocele repair which was sent very prominent and it would be determined in surgery Hospital Course The patient underwent a vaginal hysterectomy with anterior repair and sling and graft. The rectocele was not repaired since it was not very prominent She did very good after surgery. Her bladder scan after voiding revealed that she was emptying her bladder very well. She was afebrile. Tolerating diet and voiding well her pain was controlled with Toradol and p.o. meds She is discharged today on Tylenol 3 as needed severe pain, ibuprofen for moderate pain Cipro twice daily. For 7 days for prophylaxis. She is to see me in a week or earlier if she had any problems instructions were given how to get in touch with me Instructions were given of what to do and not to do at home. She is stable in good conditions to go home Home Meds Discontinued Scripts Ranitidine Hcl* (Zantac*) 150 Mg Tablet, 150 MG PO BID PRN for EPIGASTRIC PAIN, #30 TAB Prov:BRANDON FRANZ PA-C 02/01/18 Bismuth Subsalicylate* (Bismuth Subsalicylate*) 262 Mg/15 Ml Oral.susp, 15 ML PO Q6 PRN for diarrh, #1 BOTTLE Prov:BRANDON FRANZ PA-C 02/01/18 Ondansetron (Ondansetron Odt) 4 Mg Tab.rapdis, 4 MG PO Q8 PRN for NAUSEA AND/OR VOMITING, #30 TAB Prov:MARY ANNE BENAVIDEZ NP 03/25/17 Dicyclomine HCl (Dicyclomine HCl) 10 Mg Capsule, 10 MG PO QID, #20 CAP Prov:MARY ANNE BENAVIDEZ NP 03/25/17 Hydrocodone/Acetaminophen ([place] 5-325 Tablet) 1 Each Tablet, 1 TAB PO Q6H PRN for SEVERE PAIN LEVEL 7-10, #20 TAB Prov:MARY ANNE BENAVIDEZ LINE PERSON 03/25/17 Ibuprofen* (Motrin*) 600 Mg Tab, 600 MG PO Q6H PRN for PAIN AND OR ELEVATED TEMP , #30 TAB Prov:MARY ANNE BENAVIDEZ LINE PERSON 03/25/17 Ibuprofen* (Motrin*) 600 Mg Tab, 600 MG PO Q6H PRN for PAIN AND OR ELEVATED TEMP, #30 TAB Prov:RAMÍREZ CLAYTON MD 08/20/16 Naproxen* (Naprosyn*) 500 Mg Tablet, 500 MG PO BID PRN for PAIN AND/OR INFLAMMATION, #30 TAB Prov:NAKITA MOLINA PA-C 04/20/16 Hydrocodone/Acetaminophen ([place] 5-325 Tablet) 1 Each Tablet, 1 TAB PO Q6H PRN for PAIN, #7 TAB Prov:NAKITA MOLINA PA-C 04/20/16 Cyclobenzaprine Hcl* (Cyclobenzaprine Hcl*) 10 Mg Tablet, 10 MG PO TID, #15 TAB Prov:NAKITA MOLINA PA-C 04/20/16 Primary Care Provider Not On Staff Doctor Time spent on discharge: < 30 minutes Pending Labs Laboratory Tests Test 11/22/18 05:03 White Blood Count 10.1 10^3/ul (4.8-10.8) Red Blood Count 3.92 10^6/ul (4.20-5.40) Hemoglobin 10.0 g/dl (12.0-16.0) Hematocrit 32.5 % (37.0-47.0) Mean Corpuscular Volume 82.9 fl (82.0-101.0) Mean Corpuscular Hemoglobin 25.5 pg (29.0-33.0) Mean Corpuscular Hemoglobin Concent 30.8 g/dl (32.0-37.0) Red Cell Distribution Width 21.4 % (11.5-14.5) Platelet Count 312 10^3/UL (140-415) Mean Platelet Volume 9.8 fl (7.4-10.4) Immature Granulocytes % 1.000 % (0.001-0.429) Neutrophils % 58.5 % (39.0-77.0) Lymphocytes % 32.1 % (15.0-51.0) Monocytes % 6.8 % (0.0-11.0) Eosinophils % 0.8 % (0.0-7.0) Basophils % 0.8 % (0.0-2.0) Nucleated Red Blood Cells % 0.2 /100WBC (0.0-0.0) Immature Granulocytes # 0.100 10^3/ul (0.0-0.031) Neutrophils # 5.9 10^3/ul (1.6-7.5) Lymphocytes # 3.3 10^3/ul (0.8-2.9) Monocytes # 0.7 10^3/ul (0.3-0.9) Eosinophils # 0.1 10^3/ul (0.0-0.5) Basophils # 0.1 10^3/ul (0.0-0.1) Nucleated Red Blood Cells # 0.0 10^3/ul (0.0-0.0) SHARRON ROBERTSON MD November 22, 2018 11:52
== END 2018-11-22 13:18 | disposition home or self-care (01) | DRG 742 ==
LOC: SDS 06:28 → EDSTATUS 07:30 → SDS 11:01 → REC 11:02 → MS1 11:59
PROVIDERS: ADMIT Obstetrics & Gynecology; ATTEND Obstetrics & Gynecology
PROC: 0UT97ZZ Resection of Uterus, Via Natural or Artificial Opening (ICD-10-PCS; principal; 2018-11-20 07:30)
PROC: 0JUC0KZ Supplement of Pelvic Region Subcutaneous Tissue and Fascia with Nonautologous Tissue Substitute, Open Approach (ICD-10-PCS; 2018-11-20 07:30)
DX: N81.3 Complete uterovaginal prolapse (principal); Z68.41 Body mass index [BMI] 40.0-44.9, adult; N39.46 Mixed incontinence; N92.1 Excessive and frequent menstruation with irregular cycle; D25.9 Leiomyoma of uterus, unspecified; E66.01 Morbid (severe) obesity due to excess calories; D64.9 Anemia, unspecified; N80.0 Endometriosis of uterus; R10.2 Pelvic and perineal pain; N81.10 Cystocele, unspecified; E78.5 Hyperlipidemia, unspecified; K59.00 Constipation, unspecified
CPT/HCPCS: 80051; 82565; 84520; 85025; 86850; 86900; 86901; 86920; 88305; 93005; J0690; J1100; J1650; J1885; J2250; J2274; J2405; J2710; J2765; J3010; J7120; Q4166